=== PATIENT | male | born 1985 | race Caucasian/White ===

== ENCOUNTER 2018-09-07 09:40 | Emergency (ER) | payer SELFPAY ==
--- NOTE | 2018-09-07 10:30 | Emergency Department Report ---
Vomiting/Diarrhea - HPI Chief Complaint: Nausea/Vomiting/Diarrhea Stated Complaint: VOMITING/FEVER/DIARRHEA Time Seen by Provider: 09/07/18 10:29 Severity: mild Nausea/Vomiting Severity: Mild Diarrhea Severity: Mild Pain Severity: None Symptoms: Yes Able to Tolerate Fluids, Yes Family w/ Similar Symptoms, No Watery Diarrhea, No Bloody diarrhea, No Fever, No Recent Unusual Foods, No Recent Untreated Water, No Recent use of Antibiotics, No Contacts w/ Similar Symptoms, No Rash, No Hematuria, No Recent URI Symptoms Other History: Patient is a 33-year-old [place] who comes to the emergency room complaining of nausea and vomiting episodes that seem to be traveling through his family including his and 2 children. They have all had these symptoms numerous times. Patient is afebrile. He has no abdominal pain. He has no active vomiting in the emergency room. Long discussion with pt that if the family keeps getting the illness it is unlikely viral/bacterial because of antibody formation. It is more likely a repetitive exposure to a stimuli causing the symptoms. at bedside states she thought the same. They have a land lord who has not been addressing the concerns of mold, fumes, and roaches in their home. Pt is non toxic without fever. And no vomiting in ER. ED Review of Systems ROS: Stated complaint: VOMITING/FEVER/DIARRHEA Other details as noted in HPI Comment: All other systems reviewed and negative Constitutional: denies: chills, fever Eyes: denies: as per HPI ENT: denies: ear pain Respiratory: denies: see HPI Cardiovascular: denies: chest pain Endocrine: denies: flushing Gastrointestinal: as per HPI, nausea, vomiting, diarrhea. denies: abdominal pain, constipation, hematemesis, melena Genitourinary: denies: urgency, dysuria Musculoskeletal: denies: back pain Skin: denies: rash, lesions Neurological: denies: headache, weakness Psychiatric: denies: anxiety, depression Hematological/Lymphatic: denies: easy bleeding ED Past Medical Hx - Past Medical History Additional medical history: opiate dependence- off methadone - Surgical History Past Surgical History?: No Vomiting Diarrhea Exam - Exam General: Vital signs noted. No distress. Alert and acting appropriately. HEENT: Yes Moist Mucous Membranes, No Pharyngeal Erythema, No Pharyngeal Exudates, No Rhinorrhea, No Conjuctival Injection, No Frontal Tenderness, No Maxillary Tenderness Neck: No Adenopathy, No Rigidity Lungs: Yes Clear Lung Sounds, Yes Good Air Exchange, No Wheezes, No Stridor, No Cough, No Nasal Flaring, No Retractions, No Use of Accessory Muscles Heart exam: Regular: Yes, Murmur: No, Tachycardia: No Abdomen: Tenderness: No, Peritoneal Signs: No, Distention: No, Hyperactive Bowel sounds: No Skin exam: Rash: No, Edema: No Neurologic: Alert and oriented, no deficits. Musculoskeletal: Unremarkable. Exam: a/o. s1s2. lungs clear to auscultation. abd soft nontender. no cva tenderness. no active vomiting. affect normal. anxious and concerned for roaches and fumes in home. ED Medical Decision Making - Medical Decision Making no active n/v family here for concerns related to landlord not responding to issues in home see HPI VSS non toxic taking po ambulatory exam wnl educated on community resources and dc with plan of care. Critical care attestation.: If time is entered above; I have spent that time in minutes in the direct care of this critically ill patient, excluding procedure time. ED Disposition Clinical Impression: Vomiting Disposition: DC-01 TO HOME OR SELFCARE Is pt being admited?: No Does the pt Need Aspirin: No Condition: Stable Additional Instructions: TALK WITH YOUR LANDLORD ABOUT ILLNESS IN HOME. THIS IS NOT A VIRUS OR MEDICAL ILLNESS BECAUSE YOU HAVE ALL GOTTEN ILL MORE THAN ONCE. IF IT WERE ILLNESS YOU WOULD HAVE ANTIBODIES AND NOT KEEP GETTING SAME ILLNESS. MOLD, FUMES, FIELDS INFESTATION ETC ARE POSSIBLE SOURCES THAT THE LAND LORD SHOULD ADDRESS IF THEY CAN NOT ADDRESS THEM REMOVE YOURSELVES FROM THE HOME AND SEE IF THE ILLNESS DONT GET BETTER YOUR LOCAL HEALTH DEPARTMENT MAY BE ABLE TO HELP YOU Referrals: [facility] [Outside] - 3-5 Days Time of Disposition: 10:30
[2018-09-07 11:21] VITALS: BP 131/91
== END 2018-09-07 11:16 | disposition home or self-care (01) ==
LOC: ED 09:40
DX: R11.2 Nausea with vomiting, unspecified (principal)
CPT/HCPCS: 99282

== ENCOUNTER 2018-10-17 07:24 | Emergency (ER) | payer OTHER ==
[2018-10-17 07:29] VITALS: BP 141/76
[2018-10-17 07:52] LABS: Bilirubin,Urine NEG (Negative); Blood,Urine NEG (Negative); Color,Urine Yellow (Yellow); Mucus,Urine FEW /HPF; Protein,Urine <15 mg/dL mg/dL (Negative)
[2018-10-17 07:56] LABS: Basophils % (Auto) 0.3 % (0.0-1.8); Eosinophils # (Auto) 0.1 K/mm3 (0.0-0.4); Eosinophils % (Auto) 1.9 % (0.0-4.3); Hematocrit 42.5 % (35.5-45.6); Hemoglobin 14.6 gm/dl (11.8-15.2); Lymphocytes # (Auto) 2.1 K/mm3 (1.2-5.4); Mean Corpuscular HGB Conc 35 % (32-34); Mean Corpuscular Volume 91 fl (84-94); Monocytes # (Auto) 0.8 K/mm3 (0.0-0.8); Monocytes % (Auto) 12.6 % (0.0-7.3); Platelet Count 219 K/mm3 (140-440); Red Blood Count 4.67 M/mm3 (3.65-5.03); Red Cell Distribution Width 13.6 % (13.2-15.2)
[2018-10-17 08:09] LABS: Amphetamine Screen,Urine PRESUMPTIVE NEGATIVE; Cocaine Screen,Urine PRESUMPTIVE NEGATIVE; Opiate Screen,Urine PRESUMPTIVE NEGATIVE
[2018-10-17 08:15] LABS: BUN/Creatinine Ratio 13; Blood Urea Nitrogen 10 mg/dL (9-20); Calcium 9.4 mg/dL (8.4-10.2); Hemolysis Index 7
[2018-10-17 08:22] LABS: Benzodiazepines Screen,Urine PRESUMPTIVE POSITIVE; Cannabinoid Screen,Urine PRESUMPTIVE POSITIVE; Methadone Screen,Urine PRESUMPTIVE POSITIVE
--- NOTE | 2018-10-17 12:34 | Emergency Department Report ---
ED Psych HPI - General Chief Complaint: Psych Stated Complaint: DEPRESSION/ANXIETY/N/V/INSOMNIA Time Seen by Provider: 10/17/18 11:27 Source: patient Mode of arrival: Ambulatory - History of Present Illness Initial Comments: This 33-year-old male states that he ran out of psychiatric medicines. He presents with 2 of his "stepchildren". He states his works during the day and he works at night. He states he's been out of his meds for approximately 4- 5 months since he arrived from [place] except for his Prozac. His other meds include trazodone, clonazepam and Ambien. He is still taking his Prozac. He complains of insomnia. He is depressed about his condition. He stated at triage that if he his problems would be resolved. I asked of the statement meant that he wanted to hurt himself. He flatly denied that and denied suicidal ideation. He stated to me that he is just tired of being depressed and that he he wouldn't be depressed anymore. He made no a plan to hurt himself. Actually, he stated that he was not suicidal and would not kill himself. In any case, he is judged to be a suicidal risk that requires further mental health evaluation. Thus, I spoke to dominate mental health counselor who promptly went to see the patient. By the time she arrived in his treatment room the patient had left with his 2 children. MD Complaint: suicidal ideation (as above described) -: Gradual, unknown Associated Psychiatric Symptoms: depression History of same: Yes Quality: intermittent Improves With: none Worsens With: drug use (denied this but drug screen is positive), other (medication noncompliance) Context: not taking psychiatric, other (apparently substance abuse per positive urine drug screen) Associated Symptoms: denies other symptoms Treatments Prior to Arrival: none - Related Data Allergies Allergy/AdvReac Type Severity Reaction Status Date / Time No Known Allergies Allergy Verified 10/17/18 07:26 ED Review of Systems ROS: Stated complaint: DEPRESSION/ANXIETY/N/V/INSOMNIA Other details as noted in HPI Constitutional: denies: chills, fever Eyes: denies: eye pain, eye discharge, vision change ENT: denies: ear pain, throat pain Respiratory: denies: cough, shortness of breath, wheezing Cardiovascular: denies: chest pain, palpitations Endocrine: no symptoms reported Gastrointestinal: denies: abdominal pain, nausea, diarrhea Genitourinary: denies: urgency, dysuria Musculoskeletal: denies: back pain, joint swelling, arthralgia Skin: denies: rash, lesions Neurological: denies: headache, weakness, paresthesias Psychiatric: as per HPI, depression. denies: anxiety Hematological/Lymphatic: denies: easy bleeding, easy bruising ED Past Medical Hx - Past Medical History Previous Medical History?: No Additional medical history: opiate dependence- off methadone - Surgical History Past Surgical History?: No - Social History Smoking Status: Current Every Day Smoker Substance Use Type: None ED Physical Exam - General Limitations: No Limitations General appearance: alert, in no apparent distress - Head Head exam: Present: atraumatic, normocephalic - Eye Eye exam: Present: normal appearance - ENT ENT exam: Present: mucous membranes moist - Neck Neck exam: Present: normal inspection. Absent: tenderness, meningismus - Respiratory Respiratory exam: Present: normal lung sounds bilaterally. Absent: respiratory distress - Cardiovascular Cardiovascular Exam: Present: regular rate, normal rhythm. Absent: systolic murmur, diastolic murmur, rubs, gallop - GI/Abdominal GI/Abdominal exam: Present: soft, normal bowel sounds. Absent: distended, tenderness, guarding, rebound - Rectal Rectal exam: Present: deferred - Extremities Exam Extremities exam: Present: normal inspection - Back Exam Back exam: Present: normal inspection - Neurological Exam Neurological exam: Present: alert, oriented X3, CN II-XII intact. Absent: motor sensory deficit - Psychiatric Psychiatric exam: Present: normal mood. Absent: normal affect (a bit tearful) - Skin Skin exam: Present: warm, dry, intact, normal color. Absent: rash ED Course Vital Signs 10/17/18 07:27 Temperature 97.8 F Pulse Rate 87 Respiratory 18 Rate Blood Pressure 141/76 O2 Sat by Pulse 98 Oximetry - Reevaluation(s) Reevaluation #1: The patient eloped. He did not receive mental health evaluation by the counselor. He was not yet 1013. I did inform the nurse to provide a report to the police because there were 2 minor children involved. I could not be entirely certain that the patient requires a 1013. Further evaluation was definitely recommended. Law enforcement was informed. 10/17/18 12:36 10/17/18 12:46 ED Medical Decision Making - Lab Data Result diagrams: 10/17/18 07:41 10/17/18 07:41 Laboratory Results - last 24 hr 10/17/18 10/17/18 10/17/18 07:38 07:38 07:41 WBC RBC Hgb Hct MCV MCH MCHC RDW Plt Count Lymph % (Auto) [place] % (Auto) Eos % (Auto) Baso % (Auto) Lymph # [place] # Eos # Baso # Seg Neutrophils % Seg Neutrophils # Sodium Potassium Chloride Carbon Dioxide Anion Gap BUN Creatinine Estimated GFR BUN/Creatinine Ratio Glucose Calcium Urine Color Yellow Urine Turbidity Slightly-cloudy Urine pH 5.0 Ur Specific [place] 1.025 Urine Protein <15 mg/dl Urine Glucose (UA) Neg Urine Ketones Tr Urine Blood Neg Urine Nitrite Neg Ur Reducing Substances Not Reportable Urine Bilirubin Neg Urine Ictotest Not Reportable Urine Urobilinogen 4.0 Ur Leukocyte Esterase Tr Urine WBC (Auto) 10.0 H Urine RBC (Auto) 4.0 Urine Mucus Few Salicylates < 0.3 L Urine Opiates Screen Presumptive negative Urine Methadone Screen Presumptive positive Acetaminophen Ur Barbiturates Screen Presumptive negative Ur Phencyclidine Scrn Presumptive negative Ur Amphetamines Screen Presumptive negative U Benzodiazepines Scrn Presumptive positive Urine Cocaine Screen Presumptive negative U Marijuana (THC) Screen Presumptive positive Drugs of Abuse Note Disclamer Plasma/Serum Alcohol 10/17/18 10/17/18 10/17/18 07:41 07:41 07:41 WBC RBC Hgb Hct MCV MCH MCHC RDW Plt Count Lymph % (Auto) [place] % (Auto) Eos % (Auto) Baso % (Auto) Lymph # [place] # Eos # Baso # Seg Neutrophils % Seg Neutrophils # Sodium 141 Potassium 4.1 Chloride 99.5 Carbon Dioxide 28 Anion Gap 18 BUN 10 Creatinine 0.8 Estimated GFR > 60 BUN/Creatinine Ratio 13 Glucose 108 H Calcium 9.4 Urine Color Urine Turbidity Urine pH Ur Specific [place] Urine Protein Urine Glucose (UA) Urine Ketones Urine Blood Urine Nitrite Ur Reducing Substances Urine Bilirubin Urine Ictotest Urine Urobilinogen Ur Leukocyte Esterase Urine WBC (Auto) Urine RBC (Auto) Urine Mucus Salicylates Urine Opiates Screen Urine Methadone Screen Acetaminophen < 5.0 L Ur Barbiturates Screen Ur Phencyclidine Scrn Ur Amphetamines Screen U Benzodiazepines Scrn Urine Cocaine Screen U Marijuana (THC) Screen Drugs of Abuse Note Plasma/Serum Alcohol < 0.01 10/17/18 07:41 WBC 6.4 RBC 4.67 Hgb 14.6 Hct 42.5 MCV 91 MCH 31 MCHC 35 H RDW 13.6 Plt Count 219 Lymph % (Auto) 33.0 [place] % (Auto) 12.6 H Eos % (Auto) 1.9 Baso % (Auto) 0.3 Lymph # 2.1 [place] # 0.8 Eos # 0.1 Baso # 0.0 Seg Neutrophils % 52.2 Seg Neutrophils # 3.4 Sodium Potassium Chloride Carbon Dioxide Anion Gap BUN Creatinine Estimated GFR BUN/Creatinine Ratio Glucose Calcium Urine Color Urine Turbidity Urine pH Ur Specific [place] Urine Protein Urine Glucose (UA) Urine Ketones Urine Blood Urine Nitrite Ur Reducing Substances Urine Bilirubin Urine Ictotest Urine Urobilinogen Ur Leukocyte Esterase Urine WBC (Auto) Urine RBC (Auto) Urine Mucus Salicylates Urine Opiates Screen Urine Methadone Screen Acetaminophen Ur Barbiturates Screen Ur Phencyclidine Scrn Ur Amphetamines Screen U Benzodiazepines Scrn Urine Cocaine Screen U Marijuana (THC) Screen Drugs of Abuse Note Plasma/Serum Alcohol Critical care attestation.: If time is entered above; I have spent that time in minutes in the direct care of this critically ill patient, excluding procedure time. ED Disposition Clinical Impression: Depression Qualifiers: Depression Type: unspecified Qualified Code(s): F32.9 - Major depressive dis order, single episode, unspecified Disposition: 07 ELOPED Is pt being admited?: No Does the pt Need Aspirin: No Condition: Stable Referrals: SHANTI YANEZ MD [Primary Care Provider] - 3-5 Days Time of Disposition: 12:00
== END 2018-10-17 12:15 | disposition left against medical advice (07) ==
LOC: ED 07:24
DX: F32.9 Major depressive disorder, single episode, unspecified (principal); F17.200 Nicotine dependence, unspecified, uncomplicated
CPT/HCPCS: 36415; 80048; 80307; 81001; 85025; 99283; G0480; 80320

== ENCOUNTER 2019-03-05 08:32 | Emergency (ER) | payer SELFPAY ==
[2019-03-05 09:00] VITALS: BP 128/78
--- NOTE | 2019-03-05 10:57 | Emergency Department Report ---
Upper Extremity - HPI Chief Complaint: Extremity Injury, Upper Stated Complaint: BI WRIST PAIN/SWOLLEN Time Seen by Provider: 03/05/19 10:35 Upper Extremity: Left Wrist, Left Hand, Right Wrist, Right Hand Occurred When: >5 Days (2 weeks) Severity: moderate Symptoms: Yes Numbness, No Pain with Movement, No Deformity, No Limited Range of Movement, No Weakness, No Swelling, No Bruising/Ecchymosis, No Laceration or Abrasion Other History: Mr. Calderón has bilateral wrist pain and hand numbness for 2 weeks. Pain is worse at night. Better with a supine position. Started a new job. Pain is prominent in the thumb and index finger and middle finger of both hands. No recent history. Moderately severe pain. a shocking electricity type pain ED Review of Systems ROS: Stated complaint: BI WRIST PAIN/SWOLLEN Other details as noted in HPI Constitutional: denies: fever, malaise Musculoskeletal: denies: joint swelling, arthralgia, myalgia Skin: denies: rash, lesions Neurological: numbness, paresthesias ED Past Medical Hx - Past Medical History Previous Medical History?: Yes Additional medical history: opiate dependence- on methadone - Social History Smoking Status: Current Every Day Smoker Substance Use Type: Marijuana Upper Extremity Exam - Exam General: Vital signs noted. No distress. Alert and acting appropriately. Elbow: Yes Normal Range of Motion in Elbow, No Elbow Tenderness, No Elbow Deformity Forearm: No Forearm Tenderness, No Forearm Deformity, No Pain with Pronation, No Pain with Supination Wrist: Yes Wrist Tenderness, Yes Normal ROM in Wrist, No Wrist Deformity, No Snuffbox Tenderness, No Pain with Axial Thumb Compression Hand: Yes Normal ROM in Digit(s), No Hand Tenderness, No Hand Deformity, No Digit Tenderness, No Digit(s) Deformity CMS Exam: Yes Normal Distal Pulses, Yes Normal Capillary Refill, Yes Normal Distal Sensation, No Broken Skin ED Course Vital Signs 03/05/19 08:58 Temperature 97.9 F Pulse Rate 99 H Respiratory 16 Rate Blood Pressure 128/78 O2 Sat by Pulse 99 Oximetry ED Medical Decision Making - Medical Decision Making Bilateral carpal tunnel. Mr. Calderón was provided wrist braces to be worn at night and at work. Discharged with referral to orthopedic surgeon Critical care attestation.: If time is entered above; I have spent that time in minutes in the direct care of this critically ill patient, excluding procedure time. ED Disposition Clinical Impression: Carpal tunnel syndrome on both sides Disposition: DC-01 TO HOME OR SELFCARE Is pt being admited?: No Does the pt Need Aspirin: No Condition: Stable Instructions: Carpal Tunnel Syndrome (ED) Referrals: JORDAN ROBERTSON MD [Staff Physician] - 3-5 Days Forms: Work/School Release Form(ED)
== END 2019-03-05 11:03 | disposition home or self-care (01) ==
LOC: ED 08:32
DX: G56.03 Carpal tunnel syndrome, bilateral upper limbs (principal); F11.20 Opioid dependence, uncomplicated; F17.200 Nicotine dependence, unspecified, uncomplicated; F12.10 Cannabis abuse, uncomplicated; Z79.891 Long term (current) use of opiate analgesic
CPT/HCPCS: 29260

== ENCOUNTER 2019-09-24 16:31 | Emergency (ER) | payer OTHER ==
[2019-09-24] MEDS ORDERED: IBUPROFEN 600 MG TAB PO ONE (19:59)
[2019-09-24] MEDS ORDERED: methylPREDNISolone Sod Succinate 125 MG/2 ML INJ IM ONE (19:59)
[2019-09-24 20:11] LABS: Bacteria,Urine 1+ /HPF (Negative); Bilirubin,Urine NEG (Negative); Blood,Urine NEG (Negative); Color,Urine Amber (Yellow); Hyaline Casts,Urine 6 /LPF; Mucus,Urine 3+ /HPF
[2019-09-24] MEDS: IPRATROPIUM/ALBUTEROL SULFATE 3 ML AMPUL.NEB IH ONE (20:27)
[2019-09-24 20:44] VITALS: BP 130/82
--- NOTE | 2019-09-24 21:13 | XRay Report ---
CHEST PA AND LATERAL VIEWS INDICATION: dyspnea, cough. COMPARISON: None. FINDINGS: Support devices: None. Heart: Within normal limits. Lungs/Pleura: No acute pulmonary or pleural findings. IMPRESSION: 1. No acute findings. Signer Name: Brennen Zaragoza MD Signed: 09/24/2019 9:09 PM Workstation Name: [id number]
--- NOTE | 2019-09-24 21:34 | Emergency Department Report ---
- General Chief Complaint: Upper Respiratory Infection Stated Complaint: FLU Source: patient Mode of arrival: Ambulatory Limitations: No Limitations - History of Present Illness Initial Comments: Patient is a 34-year-old male with no past medical history who presents to the ED with complaint of acute onset persistent nasal and sinus congestion, persistent dry cough, diffuse low back pain and subjective fever and chills for the last 3 weeks worse in the last 2 days. Patient also states that he performs heavy lifting at work and suspect that his low back pain may be from the heavy lifting at work. Patient denies fall, traumatic injury, chest pain, shortness of breath, abdominal pain, nausea, vomiting, diarrhea, dysuria, testicular pain, syncope or headache. MD Complaint: cough, rhinorrhea, nasal congestion, sinus pain, other (lower back oau) -: Sudden, week(s) (2) Severity: severe Severity scale (0 -10): 8 Quality: sharp, aching Consistency: constant Improves With: nothing Worsens With: nothing Context: sick contacts Associated Symptoms: denies other symptoms, myalgias, rhinorrhea, nasal congestion, cough. denies: fever, chills, diaphoresis, headache, stiff neck, chest pain, shortness of breath, abdominal pain, nausea, vomiting, diarrhea, dysuria, rash, confusion, right sweats, epistaxis, hoarseness Treatments Prior to Arrival: none - Related Data Previous Rx's Medication Instructions Recorded Last Taken Type Albuterol Sulfate [Proventil Hfa] 1 - 2 puff IH Q6H PRN #1 inh 09/24/19 Unknown Rx Amoxicillin [Trimox CAP] 500 mg PO Q8H #30 capsule 09/24/19 Unknown Rx Benzonatate [Tessalon Perles] 100 mg PO Q8HR #30 capsule 09/24/19 Unknown Rx Ibuprofen [Motrin] 600 mg PO Q8H PRN #24 tablet 09/24/19 Unknown Rx methylPREDNISolone [Medrol 4MG 4 mg PO DAILY #21 tab.ds.pk 09/24/19 Unknown Rx DOSEPAK (21 tabs)] Allergies Allergy/AdvReac Type Severity Reaction Status Date / Time No Known Allergies Allergy Verified 10/17/18 07:26 ED Review of Systems ROS: Stated complaint: FLU Other details as noted in HPI Constitutional: denies: chills, fever Eyes: denies: eye pain, eye discharge, vision change ENT: congestion. denies: ear pain, throat pain Respiratory: cough, wheezing. denies: shortness of breath Cardiovascular: denies: chest pain, palpitations Endocrine: no symptoms reported Gastrointestinal: denies: abdominal pain, nausea, diarrhea Genitourinary: denies: urgency, dysuria Musculoskeletal: back pain (Low back pain), arthralgia. denies: joint swelling Skin: denies: rash, lesions Neurological: denies: headache, weakness, paresthesias Psychiatric: denies: anxiety, depression Hematological/Lymphatic: denies: easy bleeding, easy bruising ED Past Medical Hx - Past Medical History Previous Medical History?: No Additional medical history: opiate dependence- on methadone - Surgical History Past Surgical History?: No - Social History Smoking Status: Current Every Day Smoker Substance Use Type: Marijuana - Medications Home Medications: Home Medications Medication Instructions Recorded Confirmed Last Taken Type Albuterol Sulfate [Proventil Hfa] 1 - 2 puff IH Q6H PRN #1 inh 09/24/19 Unknown Rx Amoxicillin [Trimox CAP] 500 mg PO Q8H #30 capsule 09/24/19 Unknown Rx Benzonatate [Tessalon Perles] 100 mg PO Q8HR #30 capsule 09/24/19 Unknown Rx Ibuprofen [Motrin] 600 mg PO Q8H PRN #24 tablet 09/24/19 Unknown Rx methylPREDNISolone [Medrol 4MG 4 mg PO DAILY #21 tab.ds.pk 09/24/19 Unknown Rx DOSEPAK (21 tabs)] ED Physical Exam - General Limitations: No Limitations General appearance: alert, in no apparent distress - Head Head exam: Present: atraumatic, normocephalic, normal inspection - Eye Eye exam: Present: normal appearance, PERRL, EOMI Pupils: Present: normal accommodation - ENT ENT exam: Present: normal exam, normal orophraynx, mucous membranes moist, TM's normal bilaterally, normal external ear exam, other (Grossly congested nasal passages) - Neck Neck exam: Present: normal inspection, full ROM. Absent: tenderness, lymphadenopathy - Respiratory Respiratory exam: Present: wheezes. Absent: respiratory distress, rales, rhonchi, chest wall tenderness, accessory muscle use, decreased breath sounds, prolonged expiratory - Cardiovascular Cardiovascular Exam: Present: regular rate, normal rhythm, normal heart sounds. Absent: systolic murmur, diastolic murmur, rubs, gallop - GI/Abdominal GI/Abdominal exam: Present: soft, normal bowel sounds. Absent: tenderness, guarding, hyperactive bowel sounds, hypoactive bowel sounds, organomegaly - Extremities Exam Extremities exam: Present: normal inspection, full ROM, normal capillary refill - Back Exam Back exam: Present: normal inspection, full ROM. Absent: tenderness, CVA tenderness (R), CVA tenderness (L), muscle spasm, paraspinal tenderness - Neurological Exam Neurological exam: Present: alert, oriented X3, CN II-XII intact, normal gait, reflexes normal - Psychiatric Psychiatric exam: Present: normal affect, normal mood - Skin Skin exam: Present: warm, dry, intact, normal color. Absent: rash ED Course Vital Signs 09/24/19 09/24/19 09/24/19 18:31 20:17 20:27 Temperature 98.7 F Pulse Rate 121 H Pulse Rate [ 120 H Anterior Bilateral Throughout] Respiratory 20 20 Rate Respiratory 18 Rate [Anterior Bilateral Throughout] Blood Pressure 130/83 [Right] O2 Sat by Pulse 97 Oximetry 09/24/19 20:42 Temperature Pulse Rate 96 H Pulse Rate [ Anterior Bilateral Throughout] Respiratory 20 Rate Respiratory Rate [Anterior Bilateral Throughout] Blood Pressure 130/82 [Right] O2 Sat by Pulse 98 Oximetry ED Medical Decision Making - Radiology Data Radiology results: report reviewed, image reviewed Chest x-ray shows no acute cardiopulmonary abnormalities or pneumonitis. - Medical Decision Making This is a 34-year-old male with no past medical history but a chronic tobacco smoker who presents to the ED with persistent nasal and sinus congestion, dry cough, diffuse body aches and pains, low back pain, dry cough with wheezing intermittently for the last 3 weeks worse in the last 2 days. In the ED, patient is alert and oriented x3 and is not in distress. Patient was treated in the ED with pain medications, also given DuoNeb and Solu-Medrol injections. On reevaluation, patient's wheezing resolved and patient felt better. Chest x-ray shows no acute cardiopulmonary abnormalities or pneumonitis. Lab test results were unremarkable. Patient was discharged home on medications and advised to follow-up with his primary care physician in 7 to 10 days for reevaluation or return to the ED immediately if symptoms get worse. - Differential Diagnosis URI; Bronchitis; Flu like; UTI; Muscle spasm of back Critical care attestation.: If time is entered above; I have spent that time in minutes in the direct care of this critically ill patient, excluding procedure time. ED Disposition Clinical Impression: Acute upper respiratory infection Acute bronchitis Qualifiers: Bronchitis organism: other organism Qualified Code(s): J20.8 - Acute bronchitis due to other specified organisms Disposition: TO HOME OR SELFCARE Is pt being admited?: No Does the pt Need Aspirin: No Condition: Stable Instructions: Acute Bronchitis (ED), Upper Respiratory Infection (ED) Additional Instructions: Take medication with food, drink plenty of fluids and follow-up with your primary care physician in 5 to 7 days for reevaluation. Return to the ED immediately if symptoms get worse. Prescriptions: methylPREDNISolone [Medrol 4MG DOSEPAK (21 tabs)] 4 mg PO DAILY #21 tab.ds.pk Ibuprofen [Motrin] 600 mg PO Q8H PRN #24 tablet PRN Reason: Pain Albuterol Sulfate [Proventil Hfa] 1 - 2 puff IH Q6H PRN #1 inh PRN Reason: Dyspnea Benzonatate [Tessalon Perles] 100 mg PO Q8HR #30 capsule Amoxicillin [Trimox CAP] 500 mg PO Q8H #30 capsule Referrals: [facility] [Outside] - 3-5 Days Time of Disposition: 21:30 Print Language: KOREAN
== END 2019-09-24 22:02 | disposition home or self-care (01) ==
LOC: ED 16:31
DX: J20.8 Acute bronchitis due to other specified organisms (principal); J06.9 Acute upper respiratory infection, unspecified; F17.200 Nicotine dependence, unspecified, uncomplicated; F12.90 Cannabis use, unspecified, uncomplicated; Z79.899 Other long term (current) drug therapy
CPT/HCPCS: 71046; 81001; 82962; 94640; 96372; 99284; J2930; 94644